=== PATIENT | female | born 1960 | race Caucasian/White ===

== ENCOUNTER 2024-02-24 18:10 | Emergency (ER) | payer OTHER, SELFPAY ==
[2024-02-24 18:25] VITALS: BP 154/84
--- NOTE | 2024-02-24 18:59 | EDRN ---
first and then elbow. Pt unable to flex and extend R arm and unable to rotate elbow. Strong radial pulse.
--- NOTE | 2024-02-24 21:06 | ED.GENMED ---
History of Present Illness
General
Chief Complaint: Fall
Source: patient
Exam Limitations: none
Time Seen by Provider: 02/24/24 20:33
History of Present Illness
History of Present Illness:
63 y/o F right hand domiant
no sign pmh
here with right elbow and hand pain after mechanical trip and fall while walking, slipped o nthe side of her shoe and tried to use her arm to brace herself
she has pain with flexion and pronation
mild swelling
also having some hand/finger pain/swleling
has h/o arthritis in her hand
did not take anything for pain
Past History
Past History
ED Past Medical History: Hypercholesterolemia
ED Past Surgical History: Cholecystectomy
Social History
Tobacco: Non-smoker
Alcohol: Occasional
Drug: None
Personal:
Living: with family
Family History
Family History: Negative Early CAD or Sudden
Review of Systems
Review of Systems
Allergies reviewed?: Yes
All Other Systems: Not applicable
Phy Exam
Physical Exam
Physical Exam:
GENERAL: Alert , in no apparent distress, comfortable at rest
HEAD: NCAT
CV: 2+ radial pulse, cap refill intact
NEUROLOGICAL: Alert and oriented, no focal neuro deficits, , 5/5 strength, sensation intact,
SKIN: Warm and dry, superficial abrasion right lower leg just inferior to knee
MUSCULOSKELETAL: right elbow mild radial tenderness; pain with flexion past 90 degrees, suppination/pronation
no forearm tenderness
hand slightly swollen but no focal tenderness
wrist mobile
PSYCH: Normal and appropriate interaction.
Course
Orders/Labs/Results
Orders:
Orders
02/24/24 18:26
CR Hand - Right Min 3 Views Urgent
Comment: c/o elbow and hand pain
Reason For Exam: fell landed on right side
Elbow, 3 View, Right [CR Elbow - Right Min 3 Views] Urgent
Comment:
Reason For Exam: right elbow and hand pain fell
02/24/24 21:06
Ibuprofen [Motrin] 600 mg PO NOW STA
Vital Signs
Initial and Last Documented VS:
Initial Vital Signs
Temp Pulse Resp BP Pulse Ox
98.6 F 69 16 154/84 97
02/24/24 18:25 02/24/24 18:25 02/24/24 18:25 02/24/24 18:25 02/24/24 18:25
Last Documented Vital Signs
Temp Pulse Resp BP Pulse Ox
98.6 F 67 16 139/84 99
02/24/24 18:25 02/24/24 21:35 02/24/24 21:35 02/24/24 21:35 02/24/24 21:35
MDM/Problems Addressed
Differential Diagnosis Includes:
elbow sprain, elbow fracture
MDM/Problems Addressed:
63 y/o F right hand dominant
fall on right arm
right elbow pain and limited ROM
wrist normal
hand slightly swollen and painful
no head strike, thinners, nekc pain
on exam pt has pain with ranging her elbow
no shulder tenderness
xrays indep reviewed radial head fracture
arm sling and f/u ortho
no hand fracture
*Critical Care Note
Total Time (30-74mins, 75-104mins- exclusive of procedures): Not Applicable
ED Attending Note
-
Portions of this chart may have been created with voice recognition software.� Occasional wrong word or��sound alike� substitutions may have occurred due to the inherent limitations of voice recognition software.
Discharge Plan
Departure
Patient Disposition: Home (Routine Discharge)
Date of Disposition: 02/24/24
Time of Disposition: 21:22
Patient with high blood pressure during this ER visit?: Yes
Condition: Fair
Covid-19: Not Applicable
Discharge Problem:
Right radial head fracture
Instructions: Elbow Fracture, Adult ED
Prescriptions:
No Action
cyclobenzaprine 10 MG tablet
10 mg PO HSPRN PRN (Reason: muscle spasms/tightness) Qty: 10 0RF
azithromycin 250 MG tablet
250 mg PO DAILY Qty: 6 0RF
Referrals:
Romie Payan MD [Active] - Follow up in 5-7 days (ORTHO)
Marlena Galvan MD [Family Provider] -
Activity Restrictions/Additional Instructions:
YOU BROKE YOUR RADIAL HEAD (PART OF YOUR ELBOW)
THIS SHOULD HEAL WITH JUST A SLING USUALLY
USE THE SLING, ICE OFF AND ON, MOTRIN EVERY 8 HOURS, TYLENOL EVERY [address] PAYAN FOR AN APPOINTMENT FOR FOLLOW UP
RETURN FOR ANY CONCERNS
YOUR HAND XRYA SHOWS ARTHRITIS BUT NO FRACTURES.
Interventions
Interventions:
*Risk Screen - Suicide Last Done: 02/24/24 18:56
*General Assessment Last Done: 02/24/24 18:56
*Neglect/Abuse Screening Last Done: 02/24/24 18:56
ED- Fall Risk Assessment Last Done: 02/24/24 21:35
*ED COVID-19 Vaccine History Last Done: 02/24/24 18:56
*Nursing Disposition Last Done: 02/24/24 21:35
ED-Musculoskeletal Assessment Last Done: 02/24/24 18:56
ED- Neurological Assessment Last Done: 02/24/24 18:56
ED-Skin Assessment Last Done: 02/24/24 18:56
Discharge Date and Time
Discharge Date/Time: 02/24/24 21:35
Print Language: JAPANESE
[2024-02-24] MEDS: MOTRIN 600 MG PO (21:13)
[2024-02-24 21:35] VITALS: BP 139/84
== END 2024-02-24 21:35 | disposition home or self-care (01) ==
LOC: EMR 18:10
PROVIDERS: EMERGENCY PHYSICIAN Emergency Medicine; FAMILY PHYSICIAN Internal Medicine
DX: S52.121A Displaced fracture of head of right radius, initial encounter for closed fracture (principal); S52.124A Nondisplaced fracture of head of right radius, initial encounter for closed fracture; W01.0XXA Fall on same level from slipping, tripping and stumbling without subsequent striking against object, initial encounter; Y93.01 Activity, walking, marching and hiking; M79.641 Pain in right hand; E78.00 Pure hypercholesterolemia, unspecified
CPT/HCPCS: 99283; 73080; 73130

== ENCOUNTER → 2024-04-10 08:41 | Outpatient (REF) | payer OTHER, SELFPAY | LOC: RAD 08:41 | PROVIDERS: ATTENDING PHYSICIAN Nurse Practitioner; FAMILY PHYSICIAN Internal Medicine | DX: N39.0 Urinary tract infection, site not specified (principal) | CPT/HCPCS: 76770; 76856 ==